=== PATIENT | female | born 1990 | race Two or more races ===

== ENCOUNTER 2018-03-16 20:34 | Emergency (ER) | payer SELFPAY ==
[~2018-03-16] VITALS: Ht 162.6 cm; Wt 63.5 kg
[2018-03-16] MEDS ORDERED: ONDANSETRON ODT 4 MG TAB PO ONE (23:15)
[2018-03-17 02:40] VITALS: BP 115/74
[2018-03-17 03:13] LABS: Urine Bacteria NONE SEEN /hpf (None Seen); Urine Blood 3+ /uL (Negative); Urine Mucus FEW (None Seen); Urine Specific Gravity 1.026 (1.001-1.035); Urine WBC 23 /hpf (0 - 5)
[2018-03-17 03:29] LABS: Alcohol, Urine < 3.0 mg/dL (0-5); Amphetamine Screen, Urine NEGATIVE (NEGATIVE); Barbiturate Scree,Urine NEGATIVE (NEGATIVE); Benzodiazephine Screen, Urine NEGATIVE (NEGATIVE); Cannabinoid Screen, Urine POSITIVE (NEGATIVE); Cocaine Screen, Urine NEGATIVE (NEGATIVE); Opiate Scree,Urine NEGATIVE (NEGATIVE); Phencyclidine Screen, Urine NEGATIVE (NEGATIVE)
== END 2018-03-17 02:58 | disposition home or self-care (01) ==
LOC: ER 20:34
DX: F41.9 Anxiety disorder, unspecified (principal); F12.10 Cannabis abuse, uncomplicated
CPT/HCPCS: 36415; 80307; 80320; 81001; 99284; Q0162